=== PATIENT | female | born 1950 | race Caucasian/White ===

== ENCOUNTER 2022-05-07 07:16 | Emergency (ER) | payer MEDICARE, OTHER ==
[2022-05-07] MEDS ORDERED: MORPHINE SULFATE 4 MG INJ ONE ×2 (07:37→11:24)
[2022-05-07] MEDS ORDERED: MORPHINE SULFATE 4 MG INJ IV ONE ×2 (07:39→11:24)
--- NOTE | 2022-05-07 07:47 | ERPHSYRPT ---
- History of Present Illness Time Seen by Provider: 05/07/22 07:40 Source: patient Exam Limitations: no limitations Patient Subjective Stated Complaint: R leg pain Triage Nursing Assessment: pt to ED c/o R leg pain onset 5-6 days ago. pt states she saw her PCP earlier this wek and had US and XR completed of extremity, both were normal per pt report. pt rates 2/10 aching pain now, but states pain get to 7/10 during the night which has caused her to lose sleep and vomit. no alleviating or aggrevating factors reported. Inner leg does appear swollen around knee. no redness, tenderness noted. Physician History: 71-year-old female presented in the ER with chief complaint of right thigh pain for almost 6 days. Patient reports she woke up with a pain on the medial aspect of the thigh just above the knee, moderate to severe intensity, sharp in nature, aggravated with resting and feels a little better with movements. No difficulty weightbearing. No obvious swelling. Denies any fall or trauma. She was seen outpatient and has negative duplex/x-rays femur but pain is gradually worsening. It radiates to the right groin area. Patient does have a history of back pain but does not have any radiculopathy in the posterior thigh/buttock area. This pain is totally different than back pain. No numbness or tingling/weakness or limitation range of motion of any joint. Method of Injury: unknown Occurred: last week Quality: sharpness Severity of Pain-Max: severe Severity of Pain-Current: moderate Lower Extremities Pain: thigh: right Modifying Factors: Improves With: movement. Worsens With: immobilization Associated Symptoms: none Allergies/Adverse Reactions: sulfamethoxazole [From Bactrim] Allergy (Verified 05/07/22 07:23) trimethoprim [From Bactrim] Allergy (Verified 05/07/22 07:23) Home Medications: Fluoxetine HCl 20 mg [Prozac 20 MG] 40 mg PO DAILY 05/07/22 [History] Hx Tetanus, Diphtheria Vaccination/Date Given: Yes Hx Influenza Vaccination/Date Given: Yes Hx Pneumococcal Vaccination/Date Given: No Immunizations Up to Date: Yes Travel Risk - International Travel Have you traveled outside of the country in past 3 weeks: No - Coronavirus Screening Are you exhibiting any of the following symptoms?: No Close contact with a COVID-19 positive Pt in past 14-21 Days: No - Vaccine Status Have you recieved a Covid-19 vaccination: No - Review of Systems Constitutional: No Symptoms Eyes: No Symptoms Ears, Nose, & Throat: No Symptoms Respiratory: No Symptoms Cardiac: No Symptoms Abdominal/Gastrointestinal: No Symptoms Genitourinary Symptoms: No Symptoms Musculoskeletal: Myalgias Skin: No Symptoms Neurological: No Symptoms Psychological: No Symptoms Hematologic/Lymphatic: No Symptoms Immunological/Allergic: No Symptoms - Past Medical History Pertinent Past Medical History: Yes Musculoskeletal History: Other Psycho-Social History: Depression Other Medical History: scoliosis - Past Surgical History Past Surgical History: Yes Gastrointestinal: Cholecystectomy Musculoskeletal: Orthopedic Surgery Female Surgical History: Hysterectomy, Section Other Surgical History: c section x3. L knee - Social History Smoking Status: Never smoker Exposure to second hand smoke: No Drug Use: none Patient Lives Alone: No - Nursing Vital Signs Nursing Vital Signs: Initial Vital Signs Temperature 97.2 F 05/07/22 07:23 Pulse Rate 93 H 05/07/22 07:23 Respiratory Rate 18 05/07/22 07:23 Blood Pressure 141/94 05/07/22 07:23 O2 Sat by Pulse Oximetry 99 05/07/22 07:23 Pain Scale Pain Intensity 2 - Physical Exam General Appearance: no apparent distress Eyes, Ears, Nose, Throat Exam: normal ENT inspection Neck Exam: normal inspection, full range of motion Cardiovascular/Respiratory Exam: normal breath sounds, regular rate/rhythm Gastrointestinal/Abdominal Exam: non-tender, soft Back Exam: normal inspection, normal range of motion Hips Exam: bilateral: non-tender, normal inspection, normal range of motion Legs Exam: right leg: soft tissue tenderness (Right lower medial thigh with no bruising, no erythema, no increased temperature.), left leg: non-tender, bilateral leg: normal inspection, normal range of motion, no evidence of injury Knees Exam: bilateral knee: non-tender, normal inspection, normal range of motion, no evidence of injury Ankle Exam: bilateral ankle: non-tender, normal inspection, normal range of motion, no evidence of injury Neuro/Tendon Exam: normal sensation, normal motor functions Mental Status Exam: alert, oriented x 3, cooperative Skin Exam: normal color SpO2 Interpretation: normal SpO2: 99 O2 Delivery: Room Air Ordered Tests: Active Orders 24 hr Category Date Time Status LOWER EXTREMITY WO CONTRAST [CT] Stat Exams 05/07/22 10:30 Completed VENOUS UNILAT/LIMITED EXTREMIT [US] Stat Exams 05/07/22 09:26 Completed Medication Summary Discontinued Medications Generic Name Dose Route Start Last Admin Trade Name Ara PRN Reason Stop Dose Admin Morphine Sulfate Confirm 05/07/22 07:37 Morphine Sulfate 4 Mg/Ml Injection Administered 05/07/22 07:38 Dose 4 mg .ROUTE .STK-MED ONE Morphine Sulfate 4 mg 05/07/22 07:39 05/07/22 07:39 Morphine Sulfate 4 Mg/Ml Injection IV 05/07/22 07:40 4 mg STAT ONE Administration Morphine Sulfate Confirm 05/07/22 11:24 Morphine Sulfate 4 Mg/Ml Injection Administered 05/07/22 11:25 Dose 4 mg .ROUTE .STK-MED ONE Morphine Sulfate 4 mg 05/07/22 11:24 05/07/22 11:24 Morphine Sulfate 4 Mg/Ml Injection IV 05/07/22 11:25 4 mg STAT ONE Administration - Progress Progress Note: 05/07/22 07:46 She will be given pain medication and will repeat ultrasound. Does not have any bony tenderness. Does have some tenderness in the hamstring tendons area. 05/07/22 10:58 She is feeling better on reevaluation after pain medications but pain is not completely resolved. Ultrasound negative for DVT. Obtained CT which showed some chronic changes but no acute fracture dislocation or any other acute findings. Has some small effusion and small lateral subluxation of patella. Bahman wrap, outpatient follow-up recommended as it seems like patient has some ligamentous injury. Discussed signs symptoms of worsening needing return to ER which she seems understanding. Counseled pt/family regarding: diagnosis, need for follow-up, rad results - Departure Departure Disposition: Home Clinical Impression: Lower extremity pain Condition: Stable Critical Care Time: No Referrals: [facility] [Primary Care Provider] - Follow Up with PCP/3 days ORTHO - BASSEM HERNANDEZ NP [NON-STAFF PHY W/O PRIVILEGES] - Follow up/PCP as directed (In 2 days for reevaluation) Instructions: Osteoarthritis (DC) Additional Instructions: Take pain medications as needed. Weightbearing as tolerated. Follow-up with orthopedics for reevaluation. Return to ER for worsening pain, swelling or if high fever chills etc. Forms: Ortho Referral Prescriptions: Hydrocodone/Acetaminophen [Hydrocodone-Acetamin 5-325 mg] 1 tab PO Q6HPRN PRN 3 Days #12 tablet MDD 4 PRN Reason: Pain
[2022-05-07 10:46] VITALS: BP 141/84; PULSE 77
[2022-05-07 11:01] VITALS: O2SAT 99
--- NOTE | 2022-05-07 19:36 | XRAY ---
Indication: Pain. Two-dimensional sonogram and color Doppler imaging of the major venous vessels of the right leg performed. Comparison: May 03, 2022 Again no thrombus seen in the examined deep venous vessels of the right leg including greater saphenous vein. Veins demonstrate normal compressibility. Venous waveforms are normal with and without augmentation. Impression: No change compared to exam 4 days ago. Right leg negative for DVT. Comment: Preliminary report was given.
--- NOTE | 2022-05-07 19:39 | XRAY ---
Indication: Pain/swelling at night. Multiple contiguous axial images obtained through the right thigh without contrast to include the hip and knee joints. Comparison: None No acute fracture, dislocation, or suspicious bony lesions. Visualized noncontrasted soft tissues demonstrates minimal sigmoid diverticulosis and hysterectomy. No suspicious solid/cystic soft tissue mass, abnormal fluid collection, or arteriosclerotic calcifications. Right knee demonstrates small nonspecific effusion. Impression: Sigmoid diverticulosis and small nonspecific right knee effusion. Remaining CT right thigh without contrast exam is negative. Comment: Preliminary interpretation made by [facility]. No critical discrepancy.
== END 2022-05-07 11:39 | disposition home or self-care (01) ==
LOC: ED 07:16
DX: M79.651 Pain in right thigh (principal); Z79.891 Long term (current) use of opiate analgesic; Z79.899 Other long term (current) drug therapy; Z28.310 Unvaccinated for COVID-19
CPT/HCPCS: 73700; 93971; 96374; 96375; 99283; J2270

== ENCOUNTER 2022-09-19 06:08 | Day surgery (SDC) | payer OTHER, MEDICARE ==
[2022-09-19] MEDS ORDERED: Lactated Ringers 1,000 ML IV SCH (06:30)
[2022-09-19] MEDS ORDERED: Lactated Ringers 1,000 ML IV ONE (07:02)
[2022-09-19] MEDS ORDERED: DIPRIVAN 200 MG/20 ML IV ONE (08:55)
[2022-09-19] MEDS ORDERED: Versed 2 MG/2 ML Injection ONE (08:55)
[2022-09-19] MEDS ORDERED: Xylocaine-Mpf 2% 5 Ml Vial ONE (08:55)
[2022-09-19 09:09] VITALS: O2SAT 99
[2022-09-19 09:15] VITALS: BP 168/99; PULSE 74
--- NOTE | 2022-09-19 11:50 | OP ---
SURGERY DATE/TIME: 09/19/2022 0800 PREOPERATIVE DIAGNOSIS: Father with colon cancer, previous history of colon polyps ten years ago. POSTOPERATIVE DIAGNOSIS: Sigmoid diverticulosis and 1.5 cm sigmoid polyp. PROCEDURE: Colonoscopy with hot snare polypectomy. SURGEON: Dr. Nolasco. ANESTHESIA: MAC. Medications given by anesthesia department. HISTORY: The patient is a 72-year-old white female presenting now for colonoscopic evaluation. She reports that her father of colon cancer. Her last colonoscopy was ten years ago which polyps were found. The patient is presenting now for screening colonoscopy. She was appraised of the risks of the procedure including the risk of perforation, phlebitis, untoward reaction to medication, bleeding and missed lesions. The patient verbalized her understanding and desired to have the procedure performed. DESCRIPTION OF PROCEDURE: The patient was given the medications by the anesthesia department. She had continuous pulse oximetry, ECG monitoring, intermittent blood pressure monitoring during the examination. She was placed in the left lateral decubitus position. A digital rectal examination was performed and revealed normal anal sphincter tone and no masses. The flexible Olympus pediatric colonoscope was used to intubate the rectum. A view of the colon was developed sequentially to the cecum. Upon insertion and withdrawal, including a retroflex view in the rectum was noted sigmoid diverticulosis of moderate nature and approximately 1.5 cm polyp in the sigmoid colon which was removed and retrieved for pathologic evaluation from the sigmoid colon. No other lesions being noted, the scope was removed from the patient who tolerated the procedure well and was sent back to OP recovery in good condition. The prep was noted to be fair to good.
== END 2022-09-19 09:20 | disposition home or self-care (01) ==
LOC: SDC 06:08
PROVIDERS: ATTEND Family Medicine
DX: Z09 Encounter for follow-up examination after completed treatment for conditions other than malignant neoplasm (principal); Z86.010 Personal history of colon polyps; Z80.0 Family history of malignant neoplasm of digestive organs; D12.5 Benign neoplasm of sigmoid colon; K57.30 Diverticulosis of large intestine without perforation or abscess without bleeding
CPT/HCPCS: 88305; J2250; J2704